=== PATIENT | male | born 1990 | race Asian ===

== ENCOUNTER 2025-07-29 17:19 | Emergency (ER) | payer OTHER, MEDICAID ==
[~2025-07-29] VITALS: Ht 182.9 cm; Wt 103.0 kg
[2025-07-29 17:20] VITALS: RESP 14
[2025-07-29 17:22] VITALS: TEMP 37; O2SAT 99
[2025-07-29] MEDS: BACITRACIN ZINC OINT UDPKT TOP ONE (19:24)
[2025-07-29] MEDS: LIDOCAINE HCL/EPINEPHRINE 1%-EPI 1:100,000 20ML VIAL INFIL ONE (19:24)
[2025-07-29] MEDS ORDERED: BO1 TP (19:31)
[2025-07-29 19:45] VITALS: BP 129/72; PULSE 60; O2SAT 99
== END 2025-07-29 19:48 | disposition home or self-care (01) ==
LOC: ER 17:19
DX: S51.812A Laceration without foreign body of left forearm, initial encounter (principal); W26.0XXA Contact with knife, initial encounter; Y93.89 Activity, other specified; Y92.89 Other specified places as the place of occurrence of the external cause; Y99.8 Other external cause status
CPT/HCPCS: 99282; 12001; J2004

== ENCOUNTER 2025-08-07 07:20 | Emergency (ER) | payer MEDICAID, OTHER ==
[~2025-08-07] VITALS: Ht 180.3 cm; Wt 100.0 kg
[~2025-08-07 07:20] MED LIST: BO1 TP
[2025-08-07 07:34] VITALS: TEMP 36.7; O2SAT 99
[2025-08-07 08:36] VITALS: BP 122/81; PULSE 62; RESP 12; O2SAT 97
== END 2025-08-07 08:39 | disposition home or self-care (01) ==
LOC: ER 07:20
DX: S41.112D Laceration without foreign body of left upper arm, subsequent encounter (principal); X58.XXXD Exposure to other specified factors, subsequent encounter
CPT/HCPCS: 99282